=== PATIENT | male | born 1975 | race African-American/Black ===

== ENCOUNTER 2024-07-11 10:07 | Emergency (ER) | payer SELFPAY ==
[2024-07-11] MEDS: Ofloxacin 0.3% Ophth Soln 5 ML Bottle EYERT ONE (10:59)
== END 2024-07-11 11:05 | disposition home or self-care (01) ==
LOC: MW.ED 10:07
DX: S05.01XA Injury of conjunctiva and corneal abrasion without foreign body, right eye, initial encounter (principal); X58.XXXA Exposure to other specified factors, initial encounter
CPT/HCPCS: 99283; A9270

== ENCOUNTER 2025-02-11 17:39 | Emergency (ER) | payer SELFPAY | END 2025-02-11 20:57 | disposition left against medical advice (07) | LOC: MW.ED 17:39 | DX: Z53.21 Procedure and treatment not carried out due to patient leaving prior to being seen by health care provider (principal) ==

== ENCOUNTER 2025-02-12 12:50 | Emergency (ER) | payer SELFPAY ==
[2025-02-12] MEDS: Acetaminophen/HYDROcodone 325-5 MG Tab PO ONE (15:53)
[2025-02-12] MEDS: Baclofen 10 MG Tab PO ONE (15:54)
[2025-02-12] MEDS: Lidocaine 4% Patch TOP PRN (15:54)
== END 2025-02-12 17:10 | disposition home or self-care (01) ==
LOC: MW.ED 12:50
DX: M62.830 Muscle spasm of back (principal); G89.29 Other chronic pain
CPT/HCPCS: 72100; 99283; A9270; 99282